=== PATIENT | male | born 1980 | race Caucasian/White ===

== ENCOUNTER → 2025-02-16 09:14 | Outpatient (BNVA) | payer BC, SELFPAY | PROVIDERS: Visit Provider Podiatrist Foot & Ankle Surgery | DX: M79.671 Pain in right foot (principal); M79.672 Pain in left foot; M21.41 Flat foot [pes planus] (acquired), right foot; M21.42 Flat foot [pes planus] (acquired), left foot; M25.371 Other instability, right ankle; M25.732 Osteophyte, left wrist | CPT/HCPCS: 73630 ==

== ENCOUNTER 2025-04-03 12:08 | Outpatient (CLI) | payer BC, SELFPAY | END 2025-04-03 12:09 | disposition home or self-care (01) | LOC: SPT 12:09 | PROVIDERS: Visit Provider Podiatrist Foot & Ankle Surgery | DX: Z46.89 Encounter for fitting and adjustment of other specified devices (principal); M25.373 Other instability, unspecified ankle | CPT/HCPCS: L3030 ==